=== PATIENT | male | born 1960 | race American Indian/Alaskan Native ===

== ENCOUNTER 2019-05-12 19:59 | Emergency (ER) | payer MEDICARE, OTHER ==
[2019-05-12] MEDS ORDERED: TESSALON PERLES PO ONE (20:43)
[2019-05-12] MEDS ORDERED: DUONEB *Not for PRN Use IH ONE (20:43)
--- NOTE | 2019-05-12 20:47 | Emergency Department Report ---
ED Shortness of Breath HPI - General Stated Complaint: ADAIR Time Seen by Provider: 05/12/19 20:35 Source: patient, old records reviewed Mode of arrival: Carried (Peds) Limitations: Physical Limitation - History of Present Illness Initial Comments: 58-year-old male with a past medical history of Parkinson's disease, HIV, stroke with left-sided with left-sided deficit, seizures, and diabetes presents to the hospital. He continues to have shortness of breath since signing out AMA from the [facility] this morning. Patient has several days admission at the [facility] for pneumonia. He signed out AMA but was prescribed antibiotics. Patient also complains of chest tightness, nonproductive cough, denies known fever. Patient overall is a very poor historian and the fact that he had a HIV was determined by reviewing his medication. He takes Bactrim every 24 hours. States his CD4 count is in the 400s" never changes from this number". He is prescribed Doxy twice a day for 3 days in Cefpodoxin twice a day 3 days as well. - Related Data Home Medications Medication Instructions Recorded Confirmed Last Taken ALPRAZolam [Xanax TAB] 2 mg PO TID PRN 05/12/19 05/12/19 Unknown ARIPiprazole [Abilify] 30 mg PO DAILY 05/12/19 05/12/19 Unknown Aspirin [Adult Aspirin] 81 mg PO DAILY 05/12/19 05/12/19 Unknown Bupropion HCl [Wellbutrin XL] 300 mg PO QAM 05/12/19 05/12/19 Unknown Carbidopa/Levodopa/Entacapone 1 tab PO QID 05/12/19 05/12/19 Unknown [Carbidopa-Levodopa 50 mg-Enta] Cefpodoxime Proxetil 1 tab PO BID 05/12/19 05/12/19 Unknown Cobicistat [Tybost] 1 tab PO DAILY 05/12/19 05/12/19 Unknown Doxycycline Hyclate [Doxycycline 100 mg PO Q12HR 05/12/19 05/12/19 Unknown Hyclate TAB] Emtricitabine/Tenofov Alafenam 1 tab PO DAILY 05/12/19 05/12/19 Unknown [Descovy 200-25 mg Tablet] Entacapone [Comtan] 0.5 tab PO TID 05/12/19 05/12/19 Unknown Entacapone [Comtan] 0.5 tab PO TID 05/12/19 05/12/19 Unknown Finasteride 5 mg PO DAILY 05/12/19 05/12/19 Unknown Integra Plus Capsule 1 tab PO DAILY 05/12/19 05/12/19 Unknown Iron Fum,Ps/Folic/Bcomp,C No.9 1 cap PO BID 05/12/19 05/12/19 Unknown [Integra Plus Capsule] Loperamide [Imodium] 4 mg PO BID 05/12/19 05/12/19 Unknown Losartan [Cozaar] 0.5 tab PO DAILY 05/12/19 05/12/19 Unknown Maraviroc [Selzentry] 150 mg PO BID 05/12/19 05/12/19 Unknown Metoclopramide [Reglan] 10 mg PO TID 05/12/19 05/12/19 Unknown Pravastatin [Pravachol] 40 mg PO QHS 05/12/19 05/12/19 Unknown Raltegravir Potassium [Isentress 600 mg PO DAILY 05/12/19 05/12/19 Unknown Hd] Rasagiline Mesylate 1 tab PO DAILY 05/12/19 05/12/19 Unknown Sildenafil 20 mg PO PRN 05/12/19 05/12/19 Unknown Sulfamethoxazole/Trimethoprim 2 tab PO DAILY 05/12/19 05/12/19 Unknown [Bactrim 400-80 mg Tablet] Terazosin HCl 1 mg PO QHS 05/12/19 05/12/19 Unknown Triamcinolone 0.025% (Nf) 1 unit TP BID 05/12/19 05/12/19 Unknown glipiZIDE [Glucotrol] 10 mg PO BID 05/12/19 05/12/19 Unknown oxyCODONE [roxiCODONE] 5 mg PO TID 05/12/19 05/12/19 Unknown traZODone [Desyrel] 300 mg PO QHS 05/12/19 05/12/19 Unknown Previous Rx's Medication Instructions Recorded Last Taken Type ALBUTEROL Inhaler (OR & NICU) 2 puff IH QID PRN #1 inhalation 05/12/19 Unknown Rx [ProAir HFA Inhaler] Inhaler, Assist Devices [Space 1 each MC PRN #1 spacer 05/12/19 Unknown Rx Chamber Plus] Allergies Allergy/AdvReac Type Severity Reaction Status Date / Time phenobarbital Allergy Severe Unknown Verified 05/12/19 20:44 phenytoin [From Dilantin] Allergy Severe Unknown Verified 05/12/19 20:44 peanut Allergy Rash Verified 05/12/19 23:02 ED Review of Systems ROS: Stated complaint: ADAIR Other details as noted in HPI Comment: All other systems reviewed and negative ED Past Medical Hx - Past Medical History Hx CVA: Yes (left-sided deficit) Hx Diabetes: Yes Hx Seizures: Yes Additional medical history: Parkinson's disease - Medications Home Medications: Home Medications Medication Instructions Recorded Confirmed Last Taken Type ALBUTEROL Inhaler (OR & NICU) 2 puff IH QID PRN #1 inhalation 05/12/19 Unknown Rx [ProAir HFA Inhaler] ALPRAZolam [Xanax TAB] 2 mg PO TID PRN 05/12/19 05/12/19 Unknown History ARIPiprazole [Abilify] 30 mg PO DAILY 05/12/19 05/12/19 Unknown History Aspirin [Adult Aspirin] 81 mg PO DAILY 05/12/19 05/12/19 Unknown History Bupropion HCl [Wellbutrin XL] 300 mg PO QAM 05/12/19 05/12/19 Unknown History Carbidopa/Levodopa/Entacapone 1 tab PO QID 05/12/19 05/12/19 Unknown History [Carbidopa-Levodopa 50 mg-Enta] Cefpodoxime Proxetil 1 tab PO BID 05/12/19 05/12/19 Unknown History Cobicistat [Tybost] 1 tab PO DAILY 05/12/19 05/12/19 Unknown History Doxycycline Hyclate [Doxycycline 100 mg PO Q12HR 05/12/19 05/12/19 Unknown History Hyclate TAB] Emtricitabine/Tenofov Alafenam 1 tab PO DAILY 05/12/19 05/12/19 Unknown History [Descovy 200-25 mg Tablet] Entacapone [Comtan] 0.5 tab PO TID 05/12/19 05/12/19 Unknown History Entacapone [Comtan] 0.5 tab PO TID 05/12/19 05/12/19 Unknown History Finasteride 5 mg PO DAILY 05/12/19 05/12/19 Unknown History Inhaler, Assist Devices [Space 1 each MC PRN #1 spacer 05/12/19 Unknown Rx Chamber Plus] Integra Plus Capsule 1 tab PO DAILY 05/12/19 05/12/19 Unknown History Iron Fum,Ps/Folic/Bcomp,C No.9 1 cap PO BID 05/12/19 05/12/19 Unknown History [Integra Plus Capsule] Loperamide [Imodium] 4 mg PO BID 05/12/19 05/12/19 Unknown History Losartan [Cozaar] 0.5 tab PO DAILY 05/12/19 05/12/19 Unknown History Maraviroc [Selzentry] 150 mg PO BID 05/12/19 05/12/19 Unknown History Metoclopramide [Reglan] 10 mg PO TID 05/12/19 05/12/19 Unknown History Pravastatin [Pravachol] 40 mg PO QHS 05/12/19 05/12/19 Unknown History Raltegravir Potassium [Isentress 600 mg PO DAILY 05/12/19 05/12/19 Unknown History Hd] Rasagiline Mesylate 1 tab PO DAILY 05/12/19 05/12/19 Unknown History Sildenafil 20 mg PO PRN 05/12/19 05/12/19 Unknown History Sulfamethoxazole/Trimethoprim 2 tab PO DAILY 05/12/19 05/12/19 Unknown History [Bactrim 400-80 mg Tablet] Terazosin HCl 1 mg PO QHS 05/12/19 05/12/19 Unknown History Triamcinolone 0.025% (Nf) 1 unit TP BID 05/12/19 05/12/19 Unknown History glipiZIDE [Glucotrol] 10 mg PO BID 05/12/19 05/12/19 Unknown History oxyCODONE [roxiCODONE] 5 mg PO TID 05/12/19 05/12/19 Unknown History traZODone [Desyrel] 300 mg PO QHS 05/12/19 05/12/19 Unknown History ED Physical Exam - General Limitations: No Limitations - Other Other exam information: General: No limitations, patient is alert in no acute distress Head exam: Atraumatic, normocephalic Eyes exam: Normal appearance, pupils equal reactive to light, extraocular movem ents intact ENT: Moist mucous membrane, normal oropharynx no thrush Neck exam: Normal inspection Respiratory exam: No tachypnea or accessory muscle use, intermittent wheeze with cough deep inspiration and cough Cardiovascular: Normal rate and rhythm, normal heart sounds Abdomen: Soft, nondistended, and nontender, with normal bowel sounds, no rebound, or guarding Extremity: Full range of motion normal inspection no deformity Back: Normal Inspection, full range of motion, no tenderness Neurologic: Alert, oriented x3, cranial nerves intact, left sided paralysis no movement to the left arm or leg from previous CVA. 5/5 right-sided strength Psychiatric: normal affect, normal mood Skin: Warm, dry, intact ED Course Vital Signs 05/12/19 05/12/19 05/12/19 20:40 20:45 20:46 Temperature 98.9 F Pulse Rate 86 99 H 89 Pulse Rate [ Throughout] Respiratory 16 20 20 Rate Respiratory Rate [ Throughout] Blood Pressure 98/43 98/43 O2 Sat by Pulse 96 92 100 Oximetry 05/12/19 05/12/19 05/12/19 21:15 21:31 21:33 Temperature Pulse Rate 86 85 Pulse Rate [ 84 Throughout] Respiratory 24 17 Rate Respiratory 18 Rate [ Throughout] Blood Pressure 109/54 109/54 O2 Sat by Pulse 95 93 Oximetry 05/12/19 05/12/19 05/12/19 21:39 21:45 22:00 Temperature Pulse Rate 101 H 107 H Pulse Rate [ 84 Throughout] Respiratory 24 13 Rate Respiratory 18 Rate [ Throughout] Blood Pressure 98/43 131/76 O2 Sat by Pulse 94 95 Oximetry 05/12/19 05/12/19 05/12/19 22:15 22:41 22:45 Temperature Pulse Rate 111 H 99 H Pulse Rate [ Throughout] Respiratory 19 18 18 Rate Respiratory Rate [ Throughout] Blood Pressure 131/76 125/71 O2 Sat by Pulse 92 Oximetry 05/12/19 22:59 Temperature 98.2 F Pulse Rate Pulse Rate [ Throughout] Respiratory 18 Rate Respiratory Rate [ Throughout] Blood Pressure O2 Sat by Pulse 94 Oximetry ED Medical Decision Making - Lab Data Result diagrams: 05/12/19 21:41 05/12/19 21:41 Lab Results 05/12/19 05/12/19 05/12/19 Range/Units 21:41 21:41 21:41 WBC 8.2 (4.5-11.0) K/mm3 RBC 3.73 (3.65-5.03) M/mm3 Hgb 11.6 L (11.8-15.2) gm/dl Hct 32.3 L (35.5-45.6) % MCV 87 (84-94) fl MCH 31 (28-32) pg MCHC 36 H (32-34) % RDW 12.7 L (13.2-15.2) % Plt Count 293 (140-440) K/mm3 Lymph % (Auto) 22.3 (13.4-35.0) % [place] % (Auto) 8.6 H (0.0-7.3) % Eos % (Auto) 0.1 (0.0-4.3) % Baso % (Auto) 0.2 (0.0-1.8) % Lymph # 1.8 (1.2-5.4) K/mm3 [place] # 0.7 (0.0-0.8) K/mm3 Eos # 0.0 (0.0-0.4) K/mm3 Baso # 0.0 (0.0-0.1) K/mm3 Seg Neutrophils % 68.8 (40.0-70.0) % Seg Neutrophils # 5.7 (1.8-7.7) K/mm3 VBG pH (7.320-7.420) Sodium 136 L (137-145) mmol/L Potassium 3.8 (3.6-5.0) mmol/L Chloride 97.8 L (98-107) mmol/L Carbon Dioxide 25 (22-30) mmol/L Anion Gap 17 mmol/L BUN 8 L (9-20) mg/dL Creatinine 0.6 L (0.8-1.5) mg/dL Estimated GFR > 60 ml/min BUN/Creatinine Ratio 13 % Glucose 195 H (75-100) mg/dL Lactic Acid 1.20 (0.7-2.0) mmol/L Calcium 8.9 (8.4-10.2) mg/dL Troponin T (0.00-0.029) ng/mL 05/12/19 05/12/19 Range/Units 21:41 21:41 WBC (4.5-11.0) K/mm3 RBC (3.65-5.03) M/mm3 Hgb (11.8-15.2) gm/dl Hct (35.5-45.6) % MCV (84-94) fl MCH (28-32) pg MCHC (32-34) % RDW (13.2-15.2) % Plt Count (140-440) K/mm3 Lymph % (Auto) (13.4-35.0) % [place] % (Auto) (0.0-7.3) % Eos % (Auto) (0.0-4.3) % Baso % (Auto) (0.0-1.8) % Lymph # (1.2-5.4) K/mm3 [place] # (0.0-0.8) K/mm3 Eos # (0.0-0.4) K/mm3 Baso # (0.0-0.1) K/mm3 Seg Neutrophils % (40.0-70.0) % Seg Neutrophils # (1.8-7.7) K/mm3 VBG pH 7.491 H (7.320-7.420) Sodium (137-145) mmol/L Potassium (3.6-5.0) mmol/L Chloride (98-107) mmol/L Carbon Dioxide (22-30) mmol/L Anion Gap mmol/L BUN (9-20) mg/dL Creatinine (0.8-1.5) mg/dL Estimated GFR ml/min BUN/Creatinine Ratio % Glucose (75-100) mg/dL Lactic Acid (0.7-2.0) mmol/L Calcium (8.4-10.2) mg/dL Troponin T < 0.010 (0.00-0.029) ng/mL - EKG Data -: EKG Interpreted by Sd EKG shows normal: sinus rhythm (92), axis (qrs 39), QRS complexes (qrsd 94), ST- T waves (no stemi/t inv) Rate: normal - EKG Data When compared to previous EKG there are: previous EKG unavailable - Radiology Data Radiology results: report reviewed CHEST 2 VIEWS INDICATION: sob, recent pneumonia. COMPARISON: None FINDINGS: Support devices: None. Heart: Within normal limits. Lungs/pleura: Patchy multifocal airspace disease greatest in the left lung base with underlying COPD change and a few tiny scattered pulmonary nodules. No pneumothorax. Additional findings: None. IMPRESSION: 1. Patchy multifocal airspace disease greatest in the left lung base likely consistent with history of pneumonia. - Medical Decision Making Patient feeling better after 1 DuoNeb No signs of sepsis or septic shock No signs of hypoxia or respiratory distress Patient's curb 65 score is 0 making him an ideal candidate for outpatient treatment. Also patient was admitted for several days and likely received IV antibiotic treatment and has multiple antibiotics prescribed to him. I will add an inhaler to his regimen and recommended outpatient follow-up. - Differential Diagnosis pneumonia, bronchitis, AK Critical Care Time: No Critical care attestation.: If time is entered above; I have spent that time in minutes in the direct care of this critically ill patient, excluding procedure time. ED Disposition Clinical Impression: Pneumonia, HIV (human immunodeficiency virus infection), History of CVA with residual deficit, COPD (chronic obstructive pulmonary disease) Disposition: TO HOME OR SELFCARE Is pt being admited?: No Does the pt Need Aspirin: No Condition: Stable Instructions: Bacterial Pneumonia (ED), Human Immunodeficiency Virus Infection (ED), Chronic Obstructive Pulmonary Disease (ED) Additional Instructions: Take the medication as prescribed. Continue your current medication is prescribed for pneumonia. Follow up with your doctor or the clinic/doctor provided. Return if symptoms worsen as indicated by your discharge instructions Prescriptions: ALBUTEROL Inhaler (OR & NICU) [ProAir HFA Inhaler] 2 puff IH QID PRN #1 inhalation PRN Reason: Shortness Of Breath Inhaler, Assist Devices [Space Chamber Plus] 1 each MC PRN #1 spacer Referrals: [facility] TEMI [Primary Care Provider] - 3-5 Days MACIE BARRY MD [Staff Physician] - 3-5 Days (Infectious disease) CAILIN ROSE MD [Staff Physician] - 3-5 Days (Infectious disease) BILLY SIMMONS MD [Staff Physician] - 3-5 Days (Infectious disease) Time of Disposition: 23:49
--- NOTE | 2019-05-12 21:28 | XRay Report ---
CHEST 2 VIEWS INDICATION: sob, recent pneumonia. COMPARISON: None FINDINGS: Support devices: None. Heart: Within normal limits. Lungs/pleura: Patchy multifocal airspace disease greatest in the left lung base with underlying COPD change and a few tiny scattered pulmonary nodules. No pneumothorax. Additional findings: None. IMPRESSION: 1. Patchy multifocal airspace disease greatest in the left lung base likely consistent with history o f pneumonia. Signer Name: Lasha Patel MD Signed: 05/12/2019 9:24 PM Workstation Name: [id number]
[2019-05-12 21:59] LABS: Basophils % (Auto) 0.2 % (0.0-1.8); Eosinophils % (Auto) 0.1 % (0.0-4.3); Hematocrit 32.3 % (35.5-45.6); Hemoglobin 11.6 gm/dl (11.8-15.2); Lymphocytes # (Auto) 1.8 K/mm3 (1.2-5.4); Lymphocytes % (Auto) 22.3 % (13.4-35.0); Mean Corpuscular HGB Conc 36 % (32-34); Mean Corpuscular Volume 87 fl (84-94); Monocytes # (Auto) 0.7 K/mm3 (0.0-0.8); Monocytes % (Auto) 8.6 % (0.0-7.3); Platelet Count 293 K/mm3 (140-440); Red Blood Count 3.73 M/mm3 (3.65-5.03); Red Cell Distribution Width 12.7 % (13.2-15.2)
[2019-05-12 22:17] LABS: BUN/Creatinine Ratio 13; Blood Urea Nitrogen 8 mg/dL (9-20); Calcium 8.9 mg/dL (8.4-10.2); Hemolysis Index 5
[2019-05-12 22:58] VITALS: BP 125/71
== END 2019-05-13 00:51 | disposition home or self-care (01) ==
LOC: ED 19:59
DX: J44.9 Chronic obstructive pulmonary disease, unspecified (principal); J18.9 Pneumonia, unspecified organism; E11.9 Type 2 diabetes mellitus without complications; G20 Parkinson's disease; Z86.73 Personal history of transient ischemic attack (TIA), and cerebral infarction without residual deficits; Z79.82 Long term (current) use of aspirin; Z79.899 Other long term (current) drug therapy; Z88.8 Allergy status to other drugs, medicaments and biological substances; Z91.010 Allergy to peanuts; Z21 Asymptomatic human immunodeficiency virus [HIV] infection status
CPT/HCPCS: 36415; 71046; 80048; 82140; 82805; 84484; 85025; 87040; 93005; 93010; 94640; 99284